=== PATIENT | female | born 1995 | race African-American/Black ===

== ENCOUNTER 2023-10-02 16:04 | Outpatient (CLI) | payer OTHER ==
--- NOTE | 2023-10-03 09:42 | Ultrasound Report ---
PROCEDURE: OB Anatomy Scan INDICATIONS: SUPERVISION OF OUTSIDE/PRIOR DATING DATA: Last menstrual period (LMP): 05/08/2024. LMP-based estimated date of delivery (LEATHA): 02/12/2024. First dating scan (date and location): 07/04/2023. Estimated date of delivery (LEATHA) from first dating scan: 02/12/2024. The below data below was generated using the ultrasound LEATHA of 02/12/2024 TECHNIQUE: Real-time scanning was performed of the fetus, with image documentation and biometric measurements. Endovaginal scanning: Not performed. COMPARISON: None. FINDINGS: General: A single living intrauterine gestation is present. Presentation: Variable Placenta: Placental position is anterior, without previa. Amniotic fluid index: 20.3 cm, within normal limits for gestational age. heart rate: 152 beats per minute. Maternal cervical canal: 4.4 cm long; normal length is 2.5 cm or more. biometrics: Biparietal diameter: 5.1 cm, 21 weeks 3 days, 64th percentile Head circumference: 19.6 cm, 21 weeks 6 days, 76th percentile Abdominal circumference: 17.5 cm, 22 weeks 3 days, 85th percentile Femur length: 3.6 cm, 21 weeks 3 days, 57th percentile Estimated gestational age from initial scan: 21 weeks 0 days Composite gestational age from present scan: 21 weeks 2 days Estimated weight and percentile: 462 g, 89th percentile Measurement variability in biometric dating: +/- 10 days from 12-20 weeks gestation, +/- 2 weeks from 20-30 weeks gestation, +/- 3 weeks at 30 weeks gestation or later. Anatomic survey: Neuro: Ventricles are normal at less than 10 mm. Cisterna magna is normal at 3-11 mm. Cerebellum i s normal in size and morphology. Nuchal skin fold: Normal at less than 6 mm between 14 and 20 weeks gestational age. Face: Incompletely visualized. Spine: No evidence for spina bifida. Heart: Incompletely visualized. Diaphragm: Diaphragm is intact. Stomach: Left-sided stomach is present. Kidneys: No hydronephrosis. Normal is less than 5 mm in 2nd trimester, less than 7 mm in 3rd trimester. Cord: 3 vessel cord has orthotopic insertion. Bladder: Normal in size. Extremities: All 4 extremities are visualized. IMPRESSION: Single living intrauterine at 21 weeks 0 days, LEATHA of 02/12/2024. Estimated weight of 462 g, 89th percentile. The facial profile and heart are incompletely visualized. Consider short-term follow-up. Reviewed by: Andre Lima MD on 10/03/2023 9:40 AM [facility] Approved by: Andre Lima MD on 10/03/2023 9:40 AM [facility] Station ID: [id number]
== END 2023-10-02 16:05 | disposition home or self-care (01) ==
LOC: DI 16:04
PROVIDERS: ATTEND Nurse Practitioner Obstetrics & Gynecology
DX: Z34.02 Encounter for supervision of normal first pregnancy, second trimester (principal)

== ENCOUNTER 2023-11-16 15:01 | Outpatient (CLI) | payer OTHER ==
--- NOTE | 2023-11-16 16:51 | Ultrasound Report ---
PROCEDURE: OB Follow up INDICATIONS: SUPERVISON OF OUTSIDE/PRIOR DATING DATA: Last menstrual period (LMP): 05/08/2023. LMP-based estimated date of delivery (LEATHA): 02/12/2024. First dating scan (date and location): 07/04/2023. Estimated date of delivery (LEATHA) from first dating scan: 02/12/2024. The below data below was generated using the working LEATHA of 02/12/2024 TECHNIQUE: Real-time scanning was performed of the fetus, with image documentation. Endovaginal scanning: Not performed. COMPARISON: OB ultrasound 10/02/2023 FINDINGS: General: A single living intrauterine gestation is present. Presentation: Vertex Placenta: Placental position is anterior, without previa. Amniotic fluid index: 13.8 cm, within normal limits for gestational age. heart rate: 143 beats per minute. Maternal cervical canal: 3.3 cm long; normal length is 2.5 cm or more. Estimated gestational age from initial scan: 27 weeks 3 days. Other: facial profile and nose/lips appear normal. Four-chamber heart view and right and left v entricular outflow tracts are slightly suboptimally visualized, but appear to be grossly normal. IMPRESSION: 1.Single live intrauterine redemonstrated. 2. facial profile and nose/lips appear normal. 3. heart and ventricular outflow tracts appear to be within normal limits, although visualizatio n is mildly suboptimal due to positioning and rib shadows. Reviewed by: Gabe Braga MD on 11/16/2023 4:50 PM PDT Approved by: Gabe Braga MD on 11/16/2023 4:50 PM PDT Station ID: [id number]
== END 2023-11-16 15:02 | disposition home or self-care (01) ==
LOC: DI 15:01
PROVIDERS: ATTEND Nurse Practitioner Obstetrics & Gynecology
DX: Z34.02 Encounter for supervision of normal first pregnancy, second trimester (principal); Z36.89 Encounter for other specified antenatal screening

== ENCOUNTER 2024-01-18 14:02 | Outpatient (CLI) | payer OTHER ==
--- NOTE | 2024-01-18 21:44 | Ultrasound Report ---
PROCEDURE: OB Follow up INDICATIONS: UTERINE SIZE DATE DISCREPENCY OUTSIDE/PRIOR DATING DATA: Last menstrual period (LMP): 05/08/2024. LMP-based estimated date of delivery (LEATHA): 02/12/2024. First dating scan (date and location): 07/04/2023. Estimated date of delivery (LEATHA) from first dating scan: 02/12/2024. The below data below was generated using the ultrasound/clinical LEATHA of 02/12/2024 TECHNIQUE: Real-time scanning was performed of the fetus, with image documentation and biometric measurements. COMPARISON: OB ultrasound 11/16/2023 FINDINGS: General: A single living intrauterine gestation is present. Presentation: Vertex Placenta: Placental position is anterior, without previa. Amniotic fluid index: 13.9 cm cm, within normal limits for gestational age. heart rate: 141 beats per minute. Maternal cervical canal: Not assessed biometrics: Biparietal diameter: 8.4 cm 24 weeks 0 days 6th percentile Head circumference: 32.3 cm 36 weeks 3 days 22nd percentile Abdominal circumference: 31.5 cm 35 weeks 3 days 32nd percentile Femur length: 7.0 cm 35 weeks 6 days 32nd percentile Estimated gestational age from initial scan: 36 weeks 3 days Composite gestational age from present scan: 35 weeks 3 days Estimated weight and percentile: 2690 g 28th percentile Measurement variability in biometric dating: +/- 10 days from 12-20 weeks gestation, +/- 2 weeks from 20-30 weeks gestation, +/- 3 weeks at 30 weeks gestation or more. Other: Nuchal cord is noted. IMPRESSION: Single live intrauterine with gestational age today of 35 weeks 3 days. Incidental note of nuchal cord. Estimated weight is at the 28th percentile. Reviewed by: Sheryl Chatterjee MD on 01/18/2024 9:42 PM PDT Approved by: Sheryl Chatterjee MD on 01/18/2024 9:42 PM PDT Station ID: [id number]
== END 2024-01-18 14:03 | disposition home or self-care (01) ==
LOC: DI 14:02
PROVIDERS: ATTEND Nurse Practitioner Obstetrics & Gynecology
DX: O26.843 Uterine size-date discrepancy, third trimester (principal); Z3A.35 35 weeks gestation of pregnancy

== ENCOUNTER 2024-02-13 14:41 | Outpatient (CLI) | payer OTHER ==
[2024-02-13 15:00] VITALS: BP 121/74
[2024-02-13 15:11] LABS: BASOPHILS % (AUTO) 0.4 %; EOSINOPHILS # (AUTO) 0.1 10^3/uL (0.0-0.7); EOSINOPHILS % (AUTO) 1.5 %; HCT - HEMATOCRIT 38.6 % (37.0-47.0); LYMPHOCYTES # (AUTO) 1.4 10^3/uL (1.5-3.5); LYMPHOCYTES % (AUTO) 19.3 %; MEAN CORPUSCULAR HEMOGLOBIN 23.6 pg (27.0-31.0); MEAN CORPUSCULAR HGB CONC 31.1 g/dL (32.0-36.0); MEAN CORPUSCULAR VOLUME 75.8 fL (81.0-99.0); MEAN PLATELET VOLUME 11.2 fL (7.9-10.8); MONOCYTES # (AUTO) 0.2 10^3/uL (0.0-1.0); MONOCYTES % (AUTO) 3.1 %; NEUTROPHILS # (AUTO) 5.6 10^3/uL (1.5-6.6); NEUTROPHILS % (AUTO) 75.3 %; PLT - PLATELET COUNT 245 10^3/uL (130-450); RED BLOOD COUNT 5.09 10^6/uL (4.20-5.40); RED CELL DISTRIBUTION WIDTH 16.7 % (12.0-15.0); WHITE BLOOD COUNT 7.4 x10^3/uL (4.8-10.8)
[2024-02-13 15:25] LABS: ALBUMIN 3.5 g/dL (3.2-5.5); ALBUMIN/GLOBULIN RATIO 1.2 (1.0-2.2); BILIRUBIN,TOTAL 0.5 mg/dL (0.2-1.0); CALCIUM 9.3 mg/dL (8.5-10.3); CREATININE 0.7 mg/dL (0.6-1.3); POTASSIUM 3.6 mmol/L (3.5-4.5); TOTAL PROTEIN 6.5 g/dL (6.4-8.9)
[2024-02-13 15:31] LABS: CREATININE,URINE 127.8 mg/dL; PROTEIN/CREATININE RATIO,URINE 0.1 (<=0.2)
--- NOTE | 2024-02-13 15:58 | PROCEDURE REPORT ---
- HPI Diagnosis/Indication for NST: Other Current [facility] 02/12/24 Gestation 40 Weeks and 1 Days 1 Para 0 Vital Signs Temperature 36.7 C 02/13/24 14:57 Heart Rate 108 H 02/13/24 14:57 Respiratory Rate 16 02/13/24 14:57 Blood Pressure 121/74 02/13/24 14:57 Temperature 36.7 C 02/13/24 14:57 Heart Rate 108 H 02/13/24 14:57 Respiratory Rate 16 02/13/24 14:57 Blood Pressure 121/74 02/13/24 14:57 O2 Saturation If not protocol: Oxygen Flow, liters/minute - NST Procedure NST Procedure Start Date 02/13/24 Start Time 14:50 Stop Time 15:12 Vibroacoustic Stimulation Used No Patient States Movement Yes - Results and Plan Findings/Impression: Mir presents to [facility] as directed from the clinic for serial BP monitoring and labs in addition to NST secondary to mildly elevated blood pressure at her routine visit. She denies MCKINLEY, visual disturbances, RUQ or epigastric pain. She reports +FM and denies vaginal bleeding or leakage of fluid. NSt reactive. FHR baseline 140s, moderate variability, + accels, no decels No contractions appreciated via tocometry. BPs normotensive throughout visit. Labs WNL. Pr/creatinine ratio 0.1 Assessment: Elevated blood pressure without the diagnosis of HTN Plan: Reviewed risks vs benefits of continued at 40+ wks gestation vs IOL now. 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 Plan to check BPs twice daily at home and parameters for when to call/present reviewed. Pt to return Sunday for BP check and NST. Will initiate IOL at that time if diagnosing GHTN. Pt has emergency contact number. She verbalized understanding and agrees to above plan. She denies further questions or concerns at this time. FINAL DIAGNOSIS: Elevated blood pressure without the diagnosis of HTN.
== END 2024-02-13 15:45 | disposition home or self-care (01) ==
LOC: WFO 14:41 → FBP 14:44 → WFO 15:45
PROVIDERS: ATTEND Nurse Practitioner Obstetrics & Gynecology
DX: O99.891 Other specified diseases and conditions complicating pregnancy (principal); R03.0 Elevated blood-pressure reading, without diagnosis of hypertension; Z3A.40 40 weeks gestation of pregnancy
CPT/HCPCS: 36415; 59025; 80053; 82570; 84156; 85025; 99215

== ENCOUNTER 2024-02-15 08:58 | Outpatient (CLI) | payer OTHER ==
[2024-02-15 09:19] VITALS: BP 121/73
--- NOTE | 2024-02-18 13:17 | PROVIDER PROGRESS NOTE ---
- HPI Chief Complaint: Other Current : Current EDU 02/12/24 Gestation 40 Weeks and 3 Days 1 Para 0 Vital Signs Temperature 36.7 C 02/15/24 09:01 Heart Rate 102 H 02/15/24 09:01 Respiratory Rate 16 02/15/24 09:01 Blood Pressure 121/73 02/15/24 09:01 Temperature 36.7 C 02/15/24 09:01 Heart Rate 102 H 02/15/24 09:01 Respiratory Rate 16 02/15/24 09:01 Blood Pressure 121/73 02/15/24 09:01 O2 Saturation If not protocol: Oxygen Flow, liters/minute - Procedures OB Procedure Performed: NST NST Procedure: NST Procedure Start Date 02/15/24 Start Time 09:04 Stop Time 09:33 Vibroacoustic Stimulation Used No Patient States Movement Yes - Plan Plan: Yasmin presents to [facility] for scheduled NST and BP check. She had elevated blood pressure at her routine visit 48hrs ago and is here for follow up. At her previous visit 2 days ago her blood pressure normalized, her NST was reactive, and all of her labs were WNL. Upon arrival today she reports she is doing well. She denies MCKINLEY, visual disturbances, RUQ or epigastric pain. She denies contractions, vaginal bleeding or leakage of fluid and reports +FM. NST reactive. FHR baseline 140s, moderate variability, + accels, no decels No contractions appreciated via tocometry. BP Normotensive Assessment: Elevated blood pressure without the diagnosis of HTN, resolved Plan: Pt discharged home with precautions. Return 02/18/2024 for scheduled medical IOL or sooner PRN. Pt has emergency contact number. She verbalized understanding and agrees to above plan. She denies further questions or concerns at this time. FINAL DIAGNOSIS: Elevated blood pressure without the diagnosis of HTN.
== END 2024-02-15 09:36 | disposition home or self-care (01) ==
LOC: WFO 08:58 → FBP 08:59 → WFO 09:36
PROVIDERS: ATTEND Nurse Practitioner Obstetrics & Gynecology
DX: O48.0 Post-term pregnancy (principal); Z3A.40 40 weeks gestation of pregnancy
CPT/HCPCS: 59025

== ENCOUNTER 2024-02-18 15:17 | Inpatient (IN) | payer OTHER ==
--- NOTE | 2024-02-18 13:35 | HISTORY & PHYSICAL EXAMINATION ---
Admit History - Visit Reason Visit Reason: Other - : 1 Parity: 0 Premature: 0 Ectopic: 0 : 0 Care[facility] Risk/History: positive: None Complications This : positive: None Smoking Status: Never smoker - Mother's Labs Mother's Blood Type: positive: O Mother's RH: positive: Positive GBS: positive: Group B Strep Positive Rubella Status: positive: Immune - HPI Diagnosis/Indication for NST: Other - NST Procedure NST Procedure Start Time 09:04 Stop Time 09:33 Review of Systems - Constitutional Constitutional: denies: Fatigue, Fever, Chills, Malaise - Eyes Eyes: denies: Blurred vision, Spots in vision, Dipolpia - Cardiovascular Cariovascular: denies: Irregular heart rate, Palpitations, Chest pain, Edema - Respiratory Respiratory: denies: Cough, Wheezing, SOB at rest - Gastrointestinal Gastrointestinal: denies: Constipation, Diarrhea, Nausea, Vomiting - Genitourinary Genitourinary: denies: Dysuria, Frequency - Integumentary Integumentary: denies: Rash, Pruritis - Neurological Neurological: denies: Headache - Psychiatric Psychiatric: denies: Depression, Anxiety - Hematologic/Lymphatic Hematologic/Lymphatic: denies: Anemia - All Other Systems All Other Systems: reports: Reviewed and negative Physical - Abdominal Exam Contraction Frequency (min/apart): occasional Contraction Intensity: positive: Mild Uterine Resting Tone: positive: Soft - Monitoring Strip Review: positive: Category I - Presentation Presentation: positive: Vertex - Vaginal Exam Membranes: positive: Membranes intact - Speculum Exam Speculum Exam Performed: positive: No Plan for Labor - Plan For Labor I expect patient to be DC'd or transferred within 96 hours.: Yes Plan for Labor: HPI: Yasmin is a 29yo @ 40.6wks gestation by LMP c/w 8.5wk U/S who presents today to [facility] for induction of labor secondary to approaching postdates . She denies vaginal bleeding, leakage of fluid or contractions. She reports +FM. She states over the past couple of days she has experienced some very mild lower abdominal, menstrual-like cramping but other than that she has not noticed changes. [facility] the duration of her which has been complicated by her single episode of elevated blood pressure last week for which she had serial BPs and NST q 48hrs in addition to negative preeclampsia labs. She currently denies MCKINLEY, visual disturbances, RUQ or epigastric pain. 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 Her labs throughout have remained entirely WNL with no evidence of anemia. She will be admitted to [facility] for pre-induction cervical ripening secondary to approaching postdates . She is supported by her [place] today. Dating criteria: LMP: 05/08/2023 [place] by LMP 02/12/2024 Initial U/S @ 8.5wks c/w LMP dating Serial exams - agree Medical Hx: None Surgical Hx: None Social Hx: Moved here from [place] about a year ago. 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 Monogamous with male partner. Stopped drinking alcohol due to . Denies current use of tobacco, marijuana or other recreational drugs. Reports that she is safe in current relationship. Family Hx: Diabetes (grandmother), HTN (grandmother). Denies family history of congenital anomalies, Cystic Fibrosis or chromosomal abnormalities. Allergies: NKDA Medications: PNV, ASA 81mg once daily course: Initial U/S @ 8.5wks c/w LMP dating O positive, antibody negative Rubella immune, varicella immune Hep B neg, Hep C neg HIV nonreactive, RPR nonreactive Genetic screening - declined 10/02/2023 FAS WNL with the exception of incomplete visualization of facial profile and heart. Anterior placenta, no previa. Size c/w dating (EFW 89%tile). LAURA WNL. 3VC. 11/16/2023 Follow up ultrasound for completion WNL: facial profile and nose/lips appear normal, heart and ventricular outflow tracts appear to be within normal limits, although visualization is mildly suboptimal due to positioning and rib shadows. 01/18/2024 Growth and LARUA secondary to size<dates WNL (EFW 28%tile) COVID vaccination x 1 Tdap 12/2023 Glucola 88 GBS POSITIVE Physical Exam: Normocephalic, atraumatic Heart RRR w/o M/G/R Lungs CTAB Abdomen gravid, soft, nontender EFW 3700g FHR baseline 140s, + accels, no decels No contractions appreciated via tocometry SVE deferred Bilateral LE's trace edema Mood is good Assessment: 29yo @ 40.6wks gestation Supervision of normal first FHR Category I GBS positive Plan: Admit to [facility] for induction of labor with preinduction cervical ripening. 50mcg BC misoprostol q 4 hrs. Admission CMP with admit labs secondary to single elevated blood pressure last week without the diagnosis of gestational hypertension. Continuous monitoring. Initial Ampicillin for GBS prophylaxis with SROM or onset of active labor. Anticipate . Pt verbalized understanding and agrees to above plan. She denies further questions or concerns at this time.
--- NOTE | 2024-02-18 14:23 | PHARMACY PROGRESS NOTE ---
- Best Possible Medication History Admit Date and Time: Processed by: Pharmacy Medications reviewed in ED?: No Medication History completed: Yes Patient Interview: Completed Secondary Source(s): Physician records As the person ultimately responsible for medication therapy, providers are able to order a medication from an existing home medication list in [facility] via the "Reconcile Routine" prior to Confirmation of that medication by network desktop support specialist. Such practice is discouraged except when the physician, in their clinical judgment, deems that a medical need exists for a medication without regard to previous use.
[2024-02-18 15:02] LABS: BASOPHILS % (AUTO) 0.5 %; EOSINOPHILS # (AUTO) 0.1 10^3/uL (0.0-0.7); EOSINOPHILS % (AUTO) 1.5 %; LYMPHOCYTES # (AUTO) 1.5 10^3/uL (1.5-3.5); LYMPHOCYTES % (AUTO) 18.4 %; MEAN CORPUSCULAR HEMOGLOBIN 23.9 pg (27.0-31.0); MEAN CORPUSCULAR HGB CONC 31.6 g/dL (32.0-36.0); MEAN CORPUSCULAR VOLUME 75.7 fL (81.0-99.0); MEAN PLATELET VOLUME 11.4 fL (7.9-10.8); MONOCYTES # (AUTO) 0.5 10^3/uL (0.0-1.0); MONOCYTES % (AUTO) 6.7 %; NEUTROPHILS # (AUTO) 5.8 10^3/uL (1.5-6.6); NEUTROPHILS % (AUTO) 72.4 %; PLT - PLATELET COUNT 249 10^3/uL (130-450); RED BLOOD COUNT 5.02 10^6/uL (4.20-5.40)
[~2024-02-18 15:17] MED LIST: AMPICILLIN 2 GM in SODIUM CHLORIDE 0.9% MINIBAG 100 ML IV ONE; CARBOPROST TROMETHAMINE 250 MCG/ML VIAL IM PRN; LACTATED RINGERS 1,000 ML IV SCH; METHYLERGONOVINE 0.2 MG/ML VIAL IM PRN; ONDANSETRON 4 MG/2 ML VIAL IVP PRN; OXYTOCIN 10 UNIT/ML VIAL IM PRN; OXYTOCIN/SODIUM CHLORIDE 500 ML IV PRN; TRANEXAMIC ACID IN NACL 1,000 MG/100 ML BAG IV PRN; lidocaine 1% 20 ML MDV ID PRN; miSOPROStoL 200 MCG TABLET BC PRN
[2024-02-18 15:23] LABS: ALBUMIN 3.7 g/dL (3.2-5.5); ALBUMIN/GLOBULIN RATIO 1.3 (1.0-2.2); BILIRUBIN,TOTAL 0.4 mg/dL (0.2-1.0); CALCIUM 9.6 mg/dL (8.5-10.3); CREATININE 0.8 mg/dL (0.6-1.3); POTASSIUM 3.8 mmol/L (3.5-4.5); TOTAL PROTEIN 6.6 g/dL (6.4-8.9)
[2024-02-18] MEDS: miSOPROStoL 100 MCG TABLET BC SCH (15:33)
[2024-02-18] MEDS: SODIUM CHLORIDE FLUSH 0.9% 10 ML SYRINGE IVP PRN (15:35)
[2024-02-18] MEDS: LACTATED RINGERS 1,000 ML IV PRN (16:26)
[2024-02-18] MEDS ORDERED: AMPICILLIN 1 GM in SODIUM CHLORIDE 0.9% MINIBAG 100 ML IV SCH (18:00)
[2024-02-18] MEDS: ZOLPIDEM 5 MG TABLET PO PRN (21:13)
[2024-02-18] MEDS: DOCUSATE SODIUM 100 MG CAPSULE PO SCH (21:16)
[2024-02-19] MEDS: fentaNYL 100 MCG/2 ML VIAL IVP PRN (01:11)
[2024-02-19] MEDS ORDERED: ROPIVACAINE 0.2% 200 MG/100 ML BAG EP ONE (02:54)
[2024-02-19] MEDS ORDERED: LIDOCAINE 2%-EPI 1:100000 20 ML MDV ONE ×2 (02:54→06:07)
[2024-02-19] MEDS ORDERED: TERBUTALINE 1 MG/ML VIAL SUBQ ONE (04:01)
[2024-02-19] MEDS: TERBUTALINE 1 MG/ML VIAL SUBQ ONE (04:04)
--- NOTE | 2024-02-19 04:21 | ANESTHESIA ---
Pre-Anesthesia VS, & Labs - Diagnosis IOL, labor pain - Procedure Labor epidural Vital Signs: Temp Pulse Resp BP Pulse Ox O2 Flow Rate 37.2 C 99 17 119/73 02/18/24 14:05 02/18/24 14:05 02/18/24 14:05 02/18/24 14:05 Height: 5 ft 5 in Weight (kg): 116.936 kg Body Mass Index: 42.9 BMI Classification: Morbidly Obese - NPO >8 hours - Is Patient ?: Yes - Lab Results Current Lab Results: Laboratory Tests 02/18/24 15:19: Blood Type Recheck O POSITIVE 02/18/24 14:40: Sodium 133 L, Potassium 3.8, Chloride 105, Carbon Dioxide 21, Anion Gap 7.0, BUN 8, Creatinine 0.8, Estimated GFR (MDRD) 103, Glucose 72 L, Calcium 9.6, Total Bilirubin 0.4, AST 19, ALT 18, Alkaline Phosphatase 122 H, Total Protein 6.6, Albumin 3.7, Globulin 2.9, Albumin/Globulin Ratio 1.3 02/18/24 14:40: Blood Type O POSITIVE, Antibody Screen NEGATIVE 02/18/24 14:40: WBC 8.0, RBC 5.02, Hgb 12.0, Hct 38.0, MCV 75.7 L, MCH 23.9 L, MCHC 31.6 L, RDW 17.0 H, Plt Count 249, MPV 11.4 H, Neut # (Auto) 5.8, Lymph # (Auto) 1.5, Eddy # (Auto) 0.5, Eos # (Auto) 0.1, Baso # (Auto) 0.0, Absolute Nucleated RBC 0.00, Nucleated RBC % 0.0 Fish Bones: 02/18/24 14:40 02/18/24 14:40 Home Medications and Allergies Home Medications: Ambulatory Orders Aspirin [Adult Aspirin Regimen] 81 mg PO DAILY 02/18/24 Calcium Carbonate [Tums (Calcium Carbonate 500mg)] 500 mg PO PRN PRN 02/18/24 No122/Iron/Folic Acid [ Multi Tablet] 1 each PO DAILY 02/18/24 Active Medications Carboprost Tromethamine (Carboprost Tromethamine 250 Mcg/Ml Vial) 250 mcg IM Q15M PRN PRN Reason: Step 4: Hemorrhage protocol Docusate Sodium (Docusate Sodium 100 Mg Capsule) 100 mg PO DAILY [facility] Last Admin: 02/18/24 21:16 Dose: 100 mg Fentanyl (Fentanyl 100 Mcg/2 Ml Vial) 50 mcg IVP Q1HR PRN PRN Reason: Severe Pain (Level 7-10) Last Admin: 02/19/24 01:11 Dose: 50 mcg Oxytocin/Sodium Chloride (Pitocin/Sodium Chloride) 500 mls @ 999 mls/hr IV PRN PRN; Protocol PRN Reason: POST- HEMORR PREVENTION Stop: 02/23/24 14:01 Tranexamic Acid (Tranexamic 1,000 Mg/100ml-Nacl) 1,000 mg in 100 mls @ 600 mls/hr IV .ONCE PRN PRN Reason: EBL >1200mL and within 3hr Stop: 02/23/24 14:01 Lactated Ringer's (Lr) 1,000 mls @ 999 mls/hr IV PRN PRN PRN Reason: PER PHYSICIAN ORDER Last Admin: 02/19/24 02:57 Dose: 999 mls/hr Lidocaine HCl (Lidocaine 1% 20 Ml Mdv) 20 ml ID .ONCE PRN PRN Reason: PERINEAL REPAIR Stop: 02/23/24 14:01 Methylergonovine Maleate (Methylergonovine 0.2 Mg/Ml Vial) 0.2 mg IM .ONCE PRN PRN Reason: Step 2: Hemorrhage protocol Stop: 02/23/24 14:01 Misoprostol (Misoprostol 200 Mcg Tablet) 800 mcg BC .ONCE PRN PRN Reason: Step 3: Hemorrhage protocol Stop: 02/23/24 14:01 Misoprostol (Misoprostol 100 Mcg Tablet) 50 mcg BC Q4HR [facility] Last Admin: 02/19/24 01:26 Dose: 50 mcg Ondansetron HCl (Ondansetron 4 Mg/2 Ml Vial) 4 mg IVP Q4HR PRN PRN Reason: Nausea / Vomiting Oxytocin (Oxytocin 10 Unit/Ml Vial) 10 unit IM .ONCE PRN PRN Reason: Step one: If no IV access Stop: 02/23/24 14:01 Sodium Chloride (Sodium Chloride Flush 0.9% 10 Ml Syringe) 10 ml IVP 0100,0900,1700 [facility] Sodium Chloride (Sodium Chloride Flush 0.9% 10 Ml Syringe) 10 ml IVP PRN PRN PRN Reason: NEEDED PER PROVIDER ORDERS Last Admin: 02/18/24 15:35 Dose: 10 ml Zolpidem Tartrate (Zolpidem 5 Mg Tablet) 5 mg PO QPM PRN PRN Reason: Insomnia Last Admin: 02/18/24 21:13 Dose: 5 mg Aspirin [Adult Aspirin Regimen] 81 mg PO DAILY 02/18/24 Calcium Carbonate [Tums (Calcium Carbonate 500mg)] 500 mg PO PRN PRN 02/18/24 No122/Iron/Folic Acid [ Multi Tablet] 1 each PO DAILY 02/18/24 Allergies/Adverse Reactions: Allergies Allergy/AdvReac Type Severity Reaction Status Date / Time No Known Drug Allergies Allergy Verified 02/18/24 15:20 Anes History & Medical History - Anesthetic History Anesthesia Complications: reports: No previous complications Family history of Anesthesia Complications: Denies Family history of Malignant Hyperthermia: Denies - Medical History Cardiovascular: reports: None Pulmonary: reports: None Smoking Status: Never smoker Psychosocial: reports: No issues indicated - Obstetrical History : 1 Parity: 0 Events: reports: None Complications: reports: None Exam General: Alert, Oriented x3, Cooperative Dental: WNL Mouth Openin Fingerbreadth Neck Mobility: Normal Mallampati classification: III Thyromental Distance: less than 4 cm Plan Anesthesia Type: Epidural Consent for Procedure(s) Verified and Reviewed: Yes Code Status: Attempt Resuscitation ASA classification: 3-Severe systemic disease Is this case an emergency?: No
[2024-02-19] MEDS ORDERED: NALBUPHINE 10 MG/ML AMP IVP PRN (04:22)
[2024-02-19] MEDS ORDERED: diphenhydrAMINE INJ 50 MG/ML VIAL IVP PRN (04:22)
[2024-02-19] MEDS ORDERED: METOCLOPRAMIDE 10 MG/2 ML VIAL IVP PRN ×3 (04:22→08:18)
[2024-02-19] MEDS ORDERED: ePHEDrine 50 MG/ML VIAL IVP PRN ×3 (04:22→08:18)
[2024-02-19] MEDS ORDERED: ONDANSETRON 4 MG/2 ML VIAL IVP PRN ×3 (04:22→08:18)
[2024-02-19] MEDS ORDERED: ROPIVACAINE 0.2% 200 MG/100 ML BAG EP PRN (04:22)
[2024-02-19] MEDS ORDERED: NALOXONE 0.4 MG/ML VIAL IVP PRN ×3 (04:22→08:18)
--- NOTE | 2024-02-19 04:45 | PROVIDER PROGRESS NOTE ---
Labor Progress Note - Uterine Monitoring Uterine Monitoring Mode: positive: External toco Uterine Resting Tone: positive: Soft - Monitoring Monitor Mode: positive: External ultrasound Heart Rate Baseline: 150 Heart Rate Variability: positive: Moderate (6-25 bmp) Accelerations: positive: Absent Decelerations: positive: Variable, Intermittent (<50% x20 min) Strip Review: positive: Category II - Vaginal Exam Dilation (in cm): 4 Effacement (%): 100 Station: 0 Cervical Position: Anterior - Labor Progress Note Labor Progress Note/Additional Text: S: Patient now comfortable with recently placed epidural. She is tired and hoping to be able to get some sleep however aware of heart rate decelerations and need for frequent repositioning secondarily. Her remains supportive at the bedside. O: FHR baseline 150s, moderate variability, + accels, intermittent variable decelerations with occasional prolonged late declerations. Difficult to trace contractions. Consider IUPC with next SVE. No SROM documented however with SVE no apparent membranes are noted in front of head SVE 4/100/0, vertex A: 29yo @ 41.0wks gestation by LMP c/w 8.5wk U/S Postdates FHR Category II GBS positive P: Terbutaline administered secondary to prolonged deceleration with adequate recovery. Fluid bolus and position changes initiated. Initiate ampicillin now for GBS prophylaxis per protocol. Careful, continuous monitoring. Consider IUPC and amnioinfusion with next SVE. rn call center physician notified of patient status.
[2024-02-19] MEDS ORDERED: SODIUM CHLORIDE 0.9% MINIBAG 100 ML IV ONE (05:04)
[2024-02-19] MEDS ORDERED: AMPICILLIN 2 GM VIAL IV ONE (05:04)
[2024-02-19] MEDS: AMPICILLIN 2 GM in SODIUM CHLORIDE 0.9% MINIBAG 100 ML IV ONE (05:06)
[2024-02-19] MEDS ORDERED: ceFAZolin 2 GM VIAL ONE (06:07)
[2024-02-19] MEDS ORDERED: CITRIC ACID/SODIUM CITRATE 15 ML UDC PO ONE (06:07)
[2024-02-19] MEDS: CITRIC ACID/SODIUM CITRATE 15 ML UDC PO ONE (06:11)
--- NOTE | 2024-02-19 06:13 | CONSULTATION NOTE ---
Surgery Consult - Admit Date Hospital Admission Date: 02/18/24 - Consult Date Consult Date: 02/19/24 - Home Meds/Allergies Home Medications: Patient History Medication Instructions Recorded Confirmed Aspirin [Adult Aspirin Regimen] 81 mg PO DAILY 02/18/24 02/18/24 Calcium Carbonate [Tums (Calcium 500 mg PO PRN PRN 02/18/24 02/18/24 Carbonate 500mg)] No122/Iron/Folic Acid 1 each PO DAILY 02/18/24 02/18/24 [ Multi Tablet] Allergies/Adverse Reactions: Allergies Allergy/AdvReac Type Severity Reaction Status Date / Time No Known Drug Allergies Allergy Verified 02/18/24 15:20 - Vital Signs Vital Signs: Last Vital Signs Temp 99.0 F 02/18/24 14:05 Pulse 99 02/18/24 14:05 Resp 17 02/18/24 14:05 BP 119/73 02/18/24 14:05 Pulse Ox O2 Flow Rate Intake & Output: Intake & Output 02/16/24 02/17/24 02/18/24 02/19/24 23:59 23:59 23:59 23:59 Intake Total 1999 Balance 1999 - Lab Results Result Diagrams: 02/18/24 14:40 02/18/24 14:40 - Consultation Note Consultation Note: Patient is a 29-year-old G1, P0 41 weeks 0 days gestation who came for induction of labor. She is received misoprostol for cervical ripening. She received a total of 3 doses. Overnight, she had several prolonged decelerations for which she received terbutaline once followed by multiple variable decelerations and I was consulted by Chata Lloyd for management for category 2 tracing remote from delivery. PMH Denies pertinent history PSH No prior surgeries SH Denies tobacco, blood, drugs Family History Grandmother: Diabetes, hypertension Allergies No known drug allergies Medications vitamins Aspirin, 81 mg Physical exam: General: Alert, oriented, no acute distress Head: Normal cephalic atraumatic Eyes: PERRLA, extraocular motions intact. Respiratory: Normal rate of respiration. No accessory muscle use, normal respiratory effort. Cardiovascular: Regular rate and rhythm Abdomen: Nontender, nondistended Extremities: Normal range of motion Neuro: Oriented x3. Normal movements Psych: Appropriate mood and affect. Normal judgment and insight FHT: 150 beats per baseline, moderate variability, accelerations present, frequent variable decelerations [place]: Irregular SVE: Remains / per peanut picker check Assessment and plan 29-year-old at 41 weeks gestation with category 2 tracing remote from [facility] 1. Category 2 tracing -Patient is remote from delivery at 4 cm dilation. Unable to augment. Has had repetitive decelerations and recommend section. - section was recommended. Risks, benefits and alternatives were discussed including but not limited to infection, bleeding that may require blood products or hysterectomy for life saving measures, injury to surrounding organs including but not limited to bowel, bladder, ureters, tubes and ovaries and/or the baby. Should injury occur it could require longer/additional surgery to repair. The patient stated understanding and desired to proceed. All questions were answered posed by patient. -Did receive ampicillin, however over 1 hour ago. Will give cefazolin and azithromycin for surgical prophylaxis. -Epidural in place for pain control. SCDs on, Della works for abdomen. 2. 41 weeks gestation I expect patient to be discharged or transferred within 96 hours.
[2024-02-19] MEDS ORDERED: ePHEDrine 50 MG/ML VIAL IVP ONE (06:16)
[2024-02-19] MEDS ORDERED: PHENYLEPHRINE HCL 0.5 MG/5 ML AMPULE ONE (06:16)
[2024-02-19] MEDS ORDERED: OXYTOCIN 10 UNIT/ML VIAL ONE (06:19)
[2024-02-19] MEDS ORDERED: ONDANSETRON 4 MG/2 ML VIAL ONE (06:36)
[2024-02-19] MEDS ORDERED: ACETAMINOPHEN 1,000 MG/100 ML 1,000 MG/100 ML BAG IV ONE (06:43)
[2024-02-19] MEDS: LACTATED RINGERS 1,000 ML IV ONE ×2 (07:53→07:55)
[2024-02-19] MEDS ORDERED: ONDANSETRON ODT 4 MG TABLET TL PRN ×2 (07:57)
[2024-02-19] MEDS ORDERED: SODIUM CHLORIDE FLUSH 0.9% 10 ML SYRINGE IVP PRN (07:57)
[2024-02-19] MEDS ORDERED: OXYTOCIN/SODIUM CHLORIDE 500 ML IV PRN (07:57)
--- NOTE | 2024-02-19 07:57 | OPERATIVE REPORT ---
Operative Report - General Admit Date: 02/18/24 Procedure Date: 02/19/24 Planned Procedure: Low-transverse section Pre-Op Diagnosis: Category 2 tracing remote from delivery Procedure Performed: Low-transverse section Post Op Diagnosis: Category 2 tracing remote from delivery - Procedure Note Primary Surgeon: Anthony Bradford MD Secondary Surgeon: IVET Fernando Anesthesia Provider: Ember Engle CRNA Anesthesia Technique: Epidural Pathology: None Estimated Blood Loss (mL): 750 Urine Output (mL): 550 Findings: Normal appearing uterus, tubes, ovaries. with APGARs of 6/8. weight 2986g. Complications: None - Other Other Information/Narrative: section was recommended. Risks, benefits and alternatives were discussed including but not limited to infection, bleeding that may require blood products or hysterectomy for life saving measures, injury to surrounding organs including but not limited to bowel, bladder, ureters, tubes and ovaries and/or the baby. Should injury occur it could require longer/additional surgery to repair. The patient stated understanding and desired to proceed. All questions were answered posed by patient. Prior to surgery, 2 g cefazolin and 500 mg azithromycin IV were administered. The patient was taken to the operating room where regional anesthesia was found to be adequate. heart tones were measured in the 80s in the operating room. She was then prepared and draped in the usual sterile fashion in the dorsal supine position with a leftward tilt displacing the uterus. Armstrong was draining to gravity. SCDs were on bilateral lower extremities. Time out was taken. No preoperative count was completed due to heart rate decelerations. A pfannenstiel skin incision was then made with the scalpel and carried through to the underlying layer of fascia. The fascia was incised in the midline and the incision extended laterally with the Watson scissors. The superior aspect of the facial incision was then grasped with the Afia clamps, elevated and the underlying rectus muscles dissected off sharply. Attention was then turned to the inferior aspect of this incision which in a similar fashion was grasped, elevated with the Afia clamps and the rectus muscle dissected off sharply. The rectus muscles were in the midline. The peritoneum identified, and entered bluntly. The peritoneal incision was then extended superiorly and inferiorly with good visualization of the bladder. The bladder blade was inserted. The vesicouterine peritoneum was identified, grasped with the pick- ups, and entered sharply with Metzenbaum scissors. This incision was then extended laterally and the bladder flap created digitally. The bladder blade was reinserted. The lower uterine segment was identified and incised in a transverse fashion with the scalpel. The uterine incision was then extended bluntly laterally. Artificial rupture membranes demonstrated thick meconium stained fluid. The bladder blade was removed. The fetus was in a cephalic presentation. The fetus was low in the pelvis, but it was not a difficult extraction. The infant's head delivered atraumatically. The anterior shoulders were delivered followed by the posterior shoulders then the remainder of the body. The infants mouth and nose were bulb suctioned. The umbilical cord was clamped times two and cut. The infant was handed to the pediatric team. The placenta was removed with gentle traction. Oxytocin was added to the IV fluid and was allowed to run freely. The uterus was exteriorized and cleared of all clots and debris. The uterine incision was inspected and found to be without any extensions and was repaired with 0 Vicryl in a running, locked fashion. A second imbricating layer was performed. 2 additional [id number] stitches were required for hemostasis. Upon inspection, the repaired hysterotomy was found to be hemostatic. The uterus was firm and returned to the abdomen. The gutters were cleared of all clots and debris. The muscle layer was examined and found to be hemostatic. The fascia was reapproximated with 0 Vicryl in a running fashion. The subcutaneous tissue was closed with 2-0 Vicryl. The skin was closed in a subcuticular fashion with 4-0 Monocryl. As no preoperative count was performed, an x-ray at the end of the procedure showed no retained surgical instruments. The patient was taken to the recovery room in stable condition. I appreciate the assistance of IVET Fernando during this procedure, and the assistance in retraction, visualization, dissection, and overall assistance during the case were instrumental to the patient's wellbeing.
[2024-02-19] MEDS ORDERED: MORPHINE 2 MG/ML CARPUJECT IVP PRN ×2 (08:12→08:18)
[2024-02-19] MEDS ORDERED: fentaNYL 100 MCG/2 ML VIAL IVP PRN ×2 (08:12→08:18)
[2024-02-19] MEDS ORDERED: ATROPINE ABBOJECT 1 MG/10 ML SYRINGE IVP PRN ×2 (08:12→08:18)
[2024-02-19] MEDS: HYDROmorphone 0.5 MG/0.5 ML SYRINGE IVP PRN ×2 (08:15→08:20)
[2024-02-19] MEDS ORDERED: HYDROmorphone 1 MG/ML CARPUJECT ONE (08:23)
[2024-02-19] MEDS: AMPICILLIN 1 GM in SODIUM CHLORIDE 0.9% MINIBAG 100 ML IV SCH (09:00)
[2024-02-19] MEDS ORDERED: LACTATED RINGERS 1,000 ML IV SCH ×2 (09:00)
[2024-02-19] MEDS ORDERED: KETOROLAC 30 MG/ML VIAL ONE (09:08)
--- NOTE | 2024-02-19 09:09 | XRAY Report ---
PROCEDURE: Abdomen 1 V INDICATIONS: RETAINED INSTRUMENTS, URGENT TECHNIQUE: One view of the abdomen acquired. COMPARISON: None. FINDINGS: Surgical changes and devices: None. Bowel: Bowel gas pattern is normal. Soft tissues: No suspicious abdominal calcifications. Visualized solid organ contours appear normal in size. Bones: No suspicious bony lesions. IMPRESSION: No radiopaque retained instrument is seen. Reviewed by: Emile Cheek MD on 02/19/2024 9:08 AM PDT Approved by: Emile Cheek MD on 02/19/2024 9:08 AM PDT Station ID: [id number]
[2024-02-19] MEDS: KETOROLAC 30 MG/ML VIAL IVP SCH (09:10)
[2024-02-19] MEDS: LACTATED RINGERS 1,000 ML IV SCH (09:36)
--- NOTE | 2024-02-19 10:50 | ANESTHESIA POST OP EVALUATION ---
Anesthesia Post Eval - Post Anesthesia Eval Vitals: Last Vital Signs Temp 36.8 C 02/19/24 10:19 Pulse 96 02/19/24 10:19 Resp 16 02/19/24 10:19 BP 124/77 02/19/24 10:19 Pulse Ox 100 02/19/24 10:19 O2 Flow Rate CV Function Including HR & BP: Stable Pain Control: Satisfactory Nausea & Vomiting: Negative Mental Status: Baseline Respiratory Status: Airway Patent Hydration Status: Satisfactory Anesthesia Complications: None
[2024-02-19] MEDS: SODIUM CHLORIDE FLUSH 0.9% 10 ML SYRINGE IVP SCH (11:27)
--- NOTE | 2024-02-19 12:27 | PROVIDER PROGRESS NOTE ---
Labor Progress Note - Uterine Monitoring Uterine Monitoring Mode: positive: External toco, Palpation Contraction Frequency (min/apart): 4-6 Contraction Intensity: positive: Moderate to strong Uterine Resting Tone: positive: Soft - Monitoring Monitor Mode: positive: External ultrasound Heart Rate Baseline: 150 Heart Rate Variability: positive: Moderate (6-25 bmp) Accelerations: positive: Absent Decelerations: positive: Late, Variable, Recurrent (>50% x20 min) Strip Review: positive: Category II - Vaginal Exam Dilation (in cm): 4 Effacement (%): 100 Station: 0 Cervical Position: Anterior - Labor Progress Note Labor Progress Note/Additional Text: S: Patient attempting to sleep however secondary to recurrent decelerations she has been unable to get rest as she has been frequently repositioned. We reviewed my concerns for intolerance of labor and discussed at length with both she and her [place] who remains supportive at the bedside. She is teary but states she is accepting of a delivery at this time if medically indicated. O: FHR baseline 150s, moderate variability, no accels, recurrent prolonged variable decelerations. Contractions difficult to trace via tocometry. Considering attempted placement of IUPC however SVE unchanged and secondary to recurrent decelerations an IUPC was not placed at this time, rather the decision was made to consult with the butcher scullion physician to evaluate the appropriateness for a delivery. SVE unchanged. 4/100/0, vertex with intact membranes A: 29yo @ 41.0wks gestation by LMP c/w 8.5wk U/S Postdates GBS positive s/p 1 dose of ampiciillin for GBS prophyalxis FHR Category II P: [place] electronic physician notified and presence requested at the bedside to evaluate the patient for appropriateness for a delivery secondary to intolerance of labor. All medical care handed to butcher scullion physician at this time.
[2024-02-19] MEDS: ACETAMINOPHEN 500 MG TABLET PO SCH (15:38)
[2024-02-19] MEDS ORDERED: DOCUSATE SODIUM 100 MG CAPSULE PO SCH (20:05)
[2024-02-19] MEDS ORDERED: ZOLPIDEM 5 MG TABLET PO PRN (20:31)
[2024-02-19] MEDS: oxyCODONE 5 MG TABLET PO PRN (20:34)
[2024-02-20 06:21] LABS: BASOPHILS % (AUTO) 0.2 %; EOSINOPHILS % (AUTO) 0.2 %; HCT - HEMATOCRIT 28.2 % (37.0-47.0); HGB - HEMOGLOBIN 8.9 g/dL (12.0-16.0); LYMPHOCYTES % (AUTO) 6.6 %; MEAN CORPUSCULAR HGB CONC 31.6 g/dL (32.0-36.0); MEAN PLATELET VOLUME 10.5 fL (7.9-10.8); MONOCYTES % (AUTO) 5.9 %; NEUTROPHILS % (AUTO) 86.5 %; PLT - PLATELET COUNT 211 10^3/uL (130-450); RED BLOOD COUNT 3.71 10^6/uL (4.20-5.40)
[2024-02-20 06:23] LABS: ABNORMAL LYMPHS % (MANUAL) 0 %
[2024-02-20 06:55] LABS: BAND NEUTROPHILS % (MANUAL) 8 %; DIFFERENTIAL COMMENT MANUAL DIFFERENTIAL; LYMPHOCYTES % (MANUAL) 9 %; MONOCYTES # (MANUAL) 0.7 10^3/uL (0.0-1.0); NEUTROPHILS # (MANUAL) 19.4 10^3/uL (1.5-6.6); PLATELET ESTIMATE, MANUAL NORMAL (130-450,000) (NORMAL); RBC MORPHOLOGY (MULTIPLE) NORMAL APPEARANCE (NORMAL)
[2024-02-20] MEDS: ceFAZolin (2G) 2 GM in SODIUM CHLORIDE 0.9% MINIBAG 100 ML IV ONE (07:45)
[2024-02-20] MEDS: DOCUSATE SODIUM 100 MG CAPSULE PO SCH (07:50)
[2024-02-20] MEDS: SODIUM CHLORIDE FLUSH 0.9% 10 ML SYRINGE IVP SCH (07:51)
[2024-02-20] MEDS: AZITHROMYCIN INJ 500 MG in SODIUM CHLORIDE 0.9% 250 ML IV ONE (07:52)
[2024-02-20] MEDS: IBUPROFEN 600 MG TABLET PO SCH (08:09)
--- NOTE | 2024-02-20 10:18 | PROVIDER PROGRESS NOTE ---
Subjective - Subjective Subjective: Subjective Patient reports she is doing well. Lochia appropriate. Denies heavy bleeding. Ambulating. Pelvic and abdominal pain well-controlled. Tolerating oral intake. Diet: Regular. Voiding without difficulty. Passing flatus. Denies BM. Patient is bonding with baby in room Breast feeding going well. Denies feeling lightheaded, dizzy or excessively fatigued. Objective General: Alert, oriented, no apparent distress. Cardiovascular: Regular rate. Regular rhythm. Lungs: No increased work of breathing. Abdomen: Uterus firm. Below umbilicus. No guarding or rebound. Extremities: No pain on palpation. No cords palpated. Distal pulses intact. Incision: Clean, dry, and intact. Bandage removed today. Assessment and Plan day 1. -Routine care -Anticipate discharge tomorrow Status post primary low-transverse section Routine care. Objective - Vital Signs/Intake & Output Vital Signs: Vital Signs x48h Temp Pulse Resp BP Pulse Ox 02/20/24 04:51 98.3 F 75 18 112/70 99 Intake & Output: Intake & Output 02/17/24 02/18/24 02/19/24 02/20/24 23:59 23:59 23:59 23:59 Intake Total 1999 3940 Output Total 4900 1950 Balance 1999960 1950 - Lab Results Fish Bones: 02/20/24 06:15 02/18/24 14:40 Other Labs: Lab Results x24hrs 02/20/24 Range/Units 06:15 WBC 22.0 H (4.8-10.8) x10^3/uL RBC 3.71 L (4.20-5.40) 10^6/uL Hgb 8.9 L (12.0-16.0) g/dL Hct 28.2 L (37.0-47.0) % MCV 76.0 L (81.0-99.0) fL MCH 24.0 L (27.0-31.0) pg MCHC 31.6 L (32.0-36.0) g/dL RDW 17.0 H (12.0-15.0) % Plt Count 211 (130-450) 10^3/uL MPV 10.5 (7.9-10.8) fL Neut # (Auto) Not Reportable Lymph # (Auto) Not Reportable [place] # (Auto) Not Reportable Eos # (Auto) Not Reportable Baso # (Auto) Not Reportable Absolute Nucleated RBC Not Reportable Total Counted 100 Band Neuts % (Manual) 8 (0 - 10) % Abnorm Lymph % (Manual) 0 % Nucleated RBC % Not Reportable Neutrophils # (Manual) 19.4 H (1.5-6.6) 10^3/uL Lymphocytes # (Manual) 2.0 (1.5-3.5) 10^3/uL Monocytes # (Manual) 0.7 (0.0-1.0) 10^3/uL Eosinophils # (Manual) 0.0 (0-0.7) 10^3/uL Basophils # (Manual) 0.0 (0-0.1) 10^3/uL Differential Comment MANUAL DIFFERENTIAL Platelet Estimate NORMAL (130-450,000) (NORMAL) RBC Morph Micro Appear NORMAL APPEARANCE (NORMAL)
[2024-02-20] MEDS: SIMETHICONE CHEW 80 MG TABLET PO PRN (20:24)
--- NOTE | 2024-02-21 09:44 | Discharge Plan ---
Discharge Plan Problem Reviewed?: Yes Disposition: Home, Self Care Condition: Good Diet: Regular Activity Restrictions: Additional Comments Shower Restrictions: No Instruction Topics: Vaginal After, Depression No Smoking: If you smoke, Please STOP! Call for help. Follow-up with: Anthony Bradford MD [Provider Admit Priv/Credential] -
--- NOTE | 2024-02-21 09:46 | DISCHARGE SUMMARY ---
Discharge Summary Admit Date: 02/18/24 Discharge Date: 02/21/24 Discharging Provider: Anthony Bradford MD Code Status: Attempt Resuscitation Condition at Discharge: Good Discharge Disposition: 01 Home, Self Care - DIAGNOSES Admission Diagnoses: 41 weeks gestation Induction of labor Discharge Diagnoses with Status of Each Condition: Status post primary low-transverse section Delivery of live craft - HPI History of Present Illness: Subjective Patient reports she is doing well. Lochia appropriate. Denies heavy bleeding. Ambulating. Pelvic and abdominal pain well-controlled. Tolerating oral intake. Diet: Regular. Voiding without difficulty. Passing flatus. Denies BM. Patient is bonding with baby in room Breast feeding going well. Pumping with bottles. Denies feeling lightheaded, dizzy or excessively fatigued. Objective General: Alert, oriented, no apparent distress. Cardiovascular: Regular rate. Regular rhythm. Lungs: No increased work of breathing. Abdomen: Uterus firm. Below umbilicus. No guarding or rebound. Extremities: No pain on palpation. No cords palpated. Distal pulses intact. Incision: Clean, dry, and intact. - HOSPITAL COURSE Hospital Course: Patient was admitted for induction of labor at 41 weeks gestation. She received misoprostol for cervical ripening. Progressed to 4 cm, but had repetitive prolonged decelerations and as was remote from delivery, section was recommended. was unremarkable and had an uncomplicated course. Patient and her were discharged on postoperative day 2. Apgars 6/8 weight 2986 g - ALLERGIES Allergies/Adverse Reactions: Allergies Allergy/AdvReac Type Severity Reaction Status Date / Time No Known Drug Allergies Allergy Verified 02/18/24 15:20 - MEDICATIONS Home Medications: Ambulatory Orders Medication Instructions Recorded Confirmed Aspirin [Adult Aspirin Regimen] 81 mg PO DAILY 02/18/24 02/18/24 Calcium Carbonate [Tums (Calcium 500 mg PO PRN PRN 02/18/24 02/18/24 Carbonate 500mg)] No122/Iron/Folic Acid 1 each PO DAILY 02/18/24 02/18/24 [ Multi Tablet] Docusate Sodium 100Mg Capsule 100 - 200 mg PO BID PRN #60 cap 02/21/24 [Colace 100Mg Capsule] Ibuprofen [Motrin] 600 mg PO Q6H PRN #30 tab 02/21/24 oxyCODONE [Roxicodone] 5 mg PO Q4H PRN #20 tablet 02/21/24 - LABS Result Diagrams: 02/20/24 06:15 02/18/24 14:40
[2024-02-21 12:29] VITALS: BP 114/79; O2SAT 99
--- NOTE | 2024-02-21 14:21 | Labor Flowsheet ---
Labor Flowsheet Datetime Report Generated by CPN: 02/21/2024 14:20 Datetime: 02/21/2024 12:20 VITAL SIGNS NBP Sys/Ida/Mean (mmHg): 114 : 79 : 83 Pulse: 100 Datetime: 02/20/2024 19:24 SpO2 (%): 100 Datetime: 02/19/2024 10:53 Membranes Ruptured Date/Time: 02/19/2024 06:39 Membranes Rupture Method: Artificial Amniotic Fluid Color: Heavy Meconium Amniotic Fluid Amount: Large Amniotic Fluid Odor: None Datetime: 02/19/2024 06:40 Stage of : Recovery Datetime: 02/19/2024 06:13 Communication Comments: monitors disconnected, transfering pt to OR Datetime: 02/19/2024 06:09 LaborFlag: Labor Datetime: 02/19/2024 06:00 UTERINE ACTIVITY Monitor Mode: External Frequency (min): irregular Quality: Mild Pattern: Normal: <= 5 Contractions in 10 Minutes Resting Tone (Palpate): Relaxed ASSESSMENT A Monitor Mode: Telemetry FHR Baseline Rate : 145 FHR Baseline Changes: No Baseline Change Variability: Moderate 6-25 bpm Accelerations: 15X15 Decelerations: Late; Prolonged Category: Category II Oxygen Method: Room Air Datetime: 02/19/2024 05:23 PATIENT CARE IV/Blood Work: IV Started Patient Care Comments: rt lateral w/peanut ball Datetime: 02/19/2024 04:45 Respirations: 18 Temperature (C): 37.1 Temperature Route: Oral Datetime: 02/19/2024 04:19 VAGINAL EXAM Dilatation (cm): 4.0 Effacement (%): 100 Station: 1 Exam by: Chata Prema Datetime: 02/19/2024 04:05 COMMUNICATION Communication: Call/Page Placed to Provider Provider Notified (Name): Dr Sanchez Notification Reason: Status Update; Status; Labor Status Datetime: 02/19/2024 04:04 MEDICATIONS Tocolytics: Terbutaline 0.25mg Subcutaneous Medication Comments: R outer arm for bradycardia Patient Position/Activity: Right Lateral Datetime: 02/19/2024 04:02 Strip Reviewed by: RNC Spear Datetime: 02/19/2024 04:00 Comments: undetectable due to maternal movement. tracing maternal HR Datetime: 02/19/2024 03:55 Actions for Decelerations: IV Bolus; Blood Pressure Datetime: 02/19/2024 03:47 ANESTHESIA Anesthesia Plans: Epidural Epidural Positioning: Sitting Epidural Procedure: Test Dose Anesthesia Comments: pt tolerated well Datetime: 02/19/2024 03:32 PROCEDURE TIME OUT Procedure Verify: Correct Patient Identity; Correct Side and Site are Marked; Accurate Procedure Co nsent Form; Agreement on Procedure to be Done; Correct Patient Position Anesthesia Level Check: T10- Umbilicus Datetime: 02/19/2024 03:30 Contraction Comments: pt using marking button to count ctx Datetime: 02/19/2024 01:59 Monitor Interventions for UA: [place] Adjusted Datetime: 02/19/2024 01:14 PAIN Pain Scale: 4 Pain Presence: Intermittent Pain Type: Cramping Pain Location: Abdomen Pain Relief Measures: Pain Medication Given Pain Coping: Breathing Through Contractions Datetime: 02/19/2024 01:11 Analgesics/Sedatives: Fentanyl (mcg) @ 50 Datetime: 02/19/2024 00:30 Duration (sec): 50-90sec Datetime: 02/18/2024 23:41 Monitor Interventions for FHR: Ultrasound Adjusted Datetime: 02/18/2024 18:27 I/O Interventions: Up to BR Datetime: 02/18/2024 16:48 Pain Assessment Comments: no external reactions to contraction pain. Comfort Measures: Breathing/Relaxation Datetime: 02/18/2024 15:35 MATERNAL ASSESSMENT Level of Consciousness: Alert Headache: Denies Breath Sounds, Left: Clear and Equal Breath Sounds, Right: Clear and Equal Nausea/Vomiting: Denies RUQ Epigastric Pain: Denies Datetime: 02/18/2024 15:34 Cervical Ripening Agents: Cytotec @ Datetime: 02/18/2024 15:26 Pitocin Checklist: At Least 1 Acceleration of 15 bpm x 15 Seconds in 30 Minutes or Adequate Variabi lity; No More than 1 Late Deceleration Occurred in Past 30 Minutes; No More than 2 Variable Decelerat ions > 60 Seconds in Duration and decreasing >60 bpm in 30 minutes; No More than 5 Uterine Contractio ns in 10 Minutes for any 20 Minute Interval; Uterus Palpates Soft between Contractions
== END 2024-02-21 14:19 | disposition home or self-care (01) | DRG 788 ==
LOC: WFO 15:17 → FBP 15:17 → WFO 15:18 → FBP 15:22
PROVIDERS: ADMIT Nurse Practitioner Obstetrics & Gynecology; ATTEND Obstetrics & Gynecology
PROC: 3E0DXGC Introduction of Other Therapeutic Substance into Mouth and Pharynx, External Approach (ICD-10-PCS; 2024-02-18)
PROC: 10D00Z1 Extraction of Products of Conception, Low, Open Approach (ICD-10-PCS; 2024-02-19)
PROC: 10907ZC Drainage of Amniotic Fluid, Therapeutic from Products of Conception, Via Natural or Artificial Opening (ICD-10-PCS; principal; 2024-02-19 07:00)
DX: O48.0 Post-term pregnancy (principal); Z3A.41 41 weeks gestation of pregnancy; O76 Abnormality in fetal heart rate and rhythm complicating labor and delivery; O77.0 Labor and delivery complicated by meconium in amniotic fluid; Z37.0 Single live birth; O99.02 Anemia complicating childbirth; D56.3 Thalassemia minor; O99.824 Streptococcus B carrier state complicating childbirth
CPT/HCPCS: 36415; 74018; 80053; 85025; 86850; 86900; 86901; A9270; J0131; J1170; J2210; J2372; J7120